=== PATIENT | male | born 1965 | race Caucasian/White ===

== ENCOUNTER 2023-03-03 07:24 | Day surgery (SDC) | payer BC, OTHER ==
[2023-02-23 12:37] VITALS: BMI 34.2
[2023-03-03] MEDS ORDERED: MIDAZOLAM HCL 2 MG/2 ML SINGLE DOSE VIAL ONE ×2 (09:49→11:56)
[2023-03-03] MEDS ORDERED: ceFAZolin SODIUM 1 GM VIAL ONE ×2 (09:49→10:33)
[2023-03-03] MEDS ORDERED: TRANEXAMIC ACID 1000 MG/10 ML VIAL ONE ×2 (09:49→10:33)
[2023-03-03] MEDS ORDERED: PROPOFOL 40 ML ONE (09:49)
[2023-03-03] MEDS ORDERED: THROMBIN (BOVINE) 5,000 UNIT VIAL TP ONE (10:33)
[2023-03-03] MEDS ORDERED: VANCOMYCIN 1,000 MG VIAL (RESTRICTED TO ID ONLY) ONE (10:33)
[2023-03-03] MEDS ORDERED: BUPIVACAINE HCL/PF 0.5% (5 MG/ML) 30 ML VIAL IJ ONE (10:49)
[2023-03-03] MEDS ORDERED: ACETAMINOPHEN INJECTION 100 ML IVPB ONE (10:50)
[2023-03-03] MEDS ORDERED: KETAMINE HCL 500 MG/10 ML VIAL ONE (10:50)
[2023-03-03] MEDS ORDERED: BUPIVACAINE LIPOSOME/PF (EXPAREL) 266 MG/20 ML VIAL ONE (10:50)
[2023-03-03] MEDS ORDERED: oxyCODONE HCL 5 MG TABLET PO PRN (11:22)
[2023-03-03] MEDS ORDERED: ONDANSETRON 4 MG/2 ML VIAL IVPUSH PRN (11:22)
[2023-03-03] MEDS ORDERED: CEFAZOLIN 2 GM in DEXTROSE 5%-WATER - 50 ML IVPB ONE (11:30)
[2023-03-03] MEDS ORDERED: TRANEXAMIC ACID 1000 MG/10 ML VIAL IVPUSH ONE (12:30)
[2023-03-03] MEDS ORDERED: CEFAZOLIN SODIUM 2 GM in DEXTROSE 5%-WATER 100 ML IVPB SCH (14:30)
[2023-03-03] MEDS: oxyCODONE HCL 5 MG TABLET PO PRN ×2 (15:30→21:57)
[2023-03-03] MEDS ORDERED: oxyCODONE HCL 5 MG TABLET ONE (15:31)
[2023-03-03] MEDS: ACETAMINOPHEN 325 MG TABLET (FP) PO PRN (17:54)
[2023-03-03] MEDS ORDERED: HYDROmorphone HCL/PF 1 MG/ML VIAL IVPUSH ONE (18:45)
[2023-03-03] MEDS ORDERED: HYDROmorphone HCL/PF 1 MG/ML VIAL IVPUSH PRN (19:15)
[2023-03-03] MEDS: CEFAZOLIN SODIUM 2 GM in DEXTROSE 5%-WATER 100 ML IVPB SCH (19:43)
[2023-03-03] MEDS: LACTATED RINGERS SOLUTION 1,000 ML IV SCH (19:44)
[2023-03-03] MEDS: SENNOSIDES/DOCUSATE COMBO (SENNA PLUS) TABLET (UD) PO SCH (22:03)
[2023-03-04] MEDS: CEFAZOLIN SODIUM 2 GM in DEXTROSE 5%-WATER 100 ML IVPB SCH (03:07)
[2023-03-04] MEDS: oxyCODONE HCL 5 MG TABLET PO PRN ×4 (03:13→18:50)
[2023-03-04] MEDS ORDERED: HYDROmorphone HCl 2 MG/ML VIAL IVPB PRN (07:58)
[2023-03-04] MEDS: ASPIRIN 325 MG TABLET PO SCH (08:06)
[2023-03-04 08:50] LABS: HEMATOCRIT 34.4 % (35.4-49); HEMOGLOBIN 11.4 G/dL (11.7-16.9); MCH 29.3 pg (25.7-33.7); MCHC 33.2 g/dl (32.0-35.9); MEAN CELL VOLUME 88.1 fl (80-96); MEAN PLT VOLUME 8.4 fl (7.5-11.1); PLATELET COUNT 296.5 10^3/uL (134-434); RDW 14.4 % (11.9-15.9); WHITE BLOOD COUNT 17.1 10^3/uL (4.0-10.8)
[2023-03-04] MEDS: MULTIVITAMINS (DAILY MVI) TABLET (FP) PO SCH (12:27)
[2023-03-04] MEDS: PANTOPRAZOLE 40 MG TABLET PO SCH (12:27)
[2023-03-04] MEDS: SENNOSIDES/DOCUSATE COMBO (SENNA PLUS) TABLET (UD) PO SCH ×2 (12:28→22:28)
[2023-03-04] MEDS: ALLOPURINOL 100 MG TABLET (FP) PO SCH (12:28)
[2023-03-04] MEDS: LACTATED RINGERS SOLUTION 1,000 ML IV SCH (21:15)
[2023-03-05] MEDS: ASPIRIN 325 MG TABLET PO SCH (08:03)
[2023-03-05 08:11] LABS: HEMATOCRIT 31.2 % (35.4-49); HEMOGLOBIN 10.3 G/dL (11.7-16.9); MCH 29.3 pg (25.7-33.7); MCHC 33.1 g/dl (32.0-35.9); MEAN CELL VOLUME 88.3 fl (80-96); PLATELET COUNT 246.5 10^3/uL (134-434); RBC 3.53 10^6/uL (4.00-5.60); RDW 14.2 % (11.9-15.9); WHITE BLOOD COUNT 17.9 10^3/uL (4.0-10.8)
[2023-03-05] MEDS: oxyCODONE HCL 5 MG TABLET PO PRN ×3 (08:37→18:34)
[2023-03-05] MEDS: SENNOSIDES/DOCUSATE COMBO (SENNA PLUS) TABLET (UD) PO SCH ×2 (10:43→21:41)
[2023-03-05] MEDS: ALLOPURINOL 100 MG TABLET (FP) PO SCH (10:44)
[2023-03-05] MEDS: PANTOPRAZOLE 40 MG TABLET PO SCH (10:44)
[2023-03-05] MEDS: MULTIVITAMINS (DAILY MVI) TABLET (FP) PO SCH (10:44)
[2023-03-06] MEDS: oxyCODONE HCL 5 MG TABLET PO PRN (06:52)
[2023-03-06] MEDS: ASPIRIN 325 MG TABLET PO SCH (08:11)
[2023-03-06 09:52] VITALS: BP 128/65; PULSE 96; RESP 18
[2023-03-06] MEDS: ALLOPURINOL 100 MG TABLET (FP) PO SCH (10:10)
[2023-03-06] MEDS: ACETAMINOPHEN 325 MG TABLET (FP) PO PRN (10:10)
[2023-03-06] MEDS: MULTIVITAMINS (DAILY MVI) TABLET (FP) PO SCH (10:11)
[2023-03-06] MEDS: PANTOPRAZOLE 40 MG TABLET PO SCH (10:11)
[2023-03-06] MEDS: SENNOSIDES/DOCUSATE COMBO (SENNA PLUS) TABLET (UD) PO SCH (10:11)
[2023-03-06 10:54] VITALS: TEMP 98.9
[2023-03-07] MEDS ORDERED: PATIENT'S OWN MEDICATION (NON-FORMULARY) (Semaglutide [Ozempic] 1 MG/0.75 ML Pen.Injctr) SQ SCH (10:00)
== END 2023-03-06 11:22 | disposition home health service (06) ==
LOC: FASUSAT 07:24 → FM/S 15:55 → FASUSAT 03-06 11:22
PROVIDERS: ATTEND Orthopaedic Surgery
PROC: 8E0Y0CZ Robotic Assisted Procedure of Lower Extremity, Open Approach (ICD-10-PCS; 2023-03-03)
PROC: 0SRC0J9 Replacement of Right Knee Joint with Synthetic Substitute, Cemented, Open Approach (ICD-10-PCS; principal; 2023-03-03 12:24)
DX: M17.11 Unilateral primary osteoarthritis, right knee (principal); I10 Essential (primary) hypertension
CPT/HCPCS: 20985; 27447; C1776; S2900; 36415; 73560-TC-RT-FY; 82962; 85027; 94760; 97010-GP; 97116-GP; 97161-GP; C1713; C1889